=== PATIENT | female | born 1965 | race Caucasian/White ===

== ENCOUNTER 2016-04-21 09:19 | Emergency (ER) | payer BC ==
[~2016-04-21] VITALS: Ht 175.3 cm; Wt 97.7 kg
[~2016-04-21 09:19] MED LIST: Afrin,Genasal Decon, BOTH NARES; ESTRADIOL TD; FLEXERIL PO; FLOMAX0.4 MG PO; Hydrodiuril,Oretic,E PO; IBUPROFEN800 MG PO; LATANOPROST2.5 ML BOTH EYES; LIDODERM 5% P1 PATCH TD; Mobic PO; Motrin PO; PERCOCET 5/31 TABLET PO; PREDNISONE10 MG PO; Percocet 5/325,Endoc PO; ULTRAM50 MG PO; ZOFRAN4 MG PO
[2016-04-21 09:23] VITALS: BP 135/83
[2016-04-21] MEDS ORDERED: MOTRIN800 MG PO (11:29)
[2016-04-21] MEDS ORDERED: PREDNISONE20 MG PO (11:29)
[2016-04-21] MEDS ORDERED: PERCOCET 5/31 TABLET PO (11:29)
== END 2016-04-21 11:56 | disposition home or self-care (01) ==
LOC: EME 09:19
DX: M25.511 Pain in right shoulder (principal); M25.611 Stiffness of right shoulder, not elsewhere classified
CPT/HCPCS: 73030; 99281; 99283; J7512